=== PATIENT | male | born 1975 ===

== ENCOUNTER 2024-02-22 00:49 | Emergency (ER) | payer OTHER ==
[~2024-02-22] VITALS: Ht 190.5 cm; Wt 205.0 kg
[2024-02-22] MEDS ORDERED: MORPHINE SULFATE 4 MG/ML VIAL IV ONE (01:00)
[2024-02-22] MEDS ORDERED: ALLOPURINOL100 MG PO (01:00)
[2024-02-22] MEDS ORDERED: SODIUM CHLORIDE 0.9% 1,000 ML IV ONE (01:00)
[2024-02-22] MEDS ORDERED: LODOCO0.5 MG PO (01:00)
[2024-02-22] MEDS ORDERED: ondansetron HCL 4 MG/2 ML VIAL IV ONE (01:00)
[2024-02-22] MEDS ORDERED: INDOMETHACIN MISC (01:01)
[2024-02-22 01:25] LABS: BASOPHILS 0.7 % (0-2); EOSINOPHILS 0.7 % (0-6); HEMATOCRIT 44.6 % (35.0-50.0); HEMOGLOBIN 14.7 g/dL (12.0-18.0); LYMPHOCYTES 16.6 % (24-44); MCH 26.5 (27-36); MCHC 32.9 g/dl (30-36); MCV 80.5 fl (81-99); MONOCYTES 5.5 % (0-12); NEUTROPHILS 76.5 % (39-80); PLATELET COUNT 226 K/uL (140-440); RBC 5.54 M/ul (4.3-5.7)
[2024-02-22 01:43] LABS: ALBUMIN 3.9 g/dL (3.4-5.0); ALBUMIN/GLOBULIN RATIO 1.18 (1.1-2.4); ANION GAP 15.1 (7-21); BILIRUBIN, TOTAL 0.4 ng/dL (0.2-1.0); BUN/CREATININE RATIO 22.95 (6.0-28.6); CALCIUM 9.4 mg/dL (8.5-10.1); CREATININE, SERUM 1.22 mg/dL (0.70-1.30); POTASSIUM 4.1 mmol/L (3.5-5.1); PROTEIN, TOTAL 7.2 g/dL (6.4-8.2)
[2024-02-22 02:09] LABS: BILIRUBIN, URINE NEGATIVE (negative); BLOOD/HGB, URINE LARGE (Negative); KETONE, URINE NEGATIVE (Negative); LEUK ESTERASE, URINE NEGATIVE (negative); NITRITE, URINE NEGATIVE (negative); PH, URINE 5.5 (5-7)
[2024-02-22 02:15] LABS: EPITHELIAL CELLS, URINE SQUAMOUS 1+ /lpf (0-1+); RED BLOOD CELLS, URINE >50 /hpf (0-5)
[2024-02-22 02:16] LABS: BACTERIA, URINE RARE /hpf (negative); CASTS, URINE NONE SEEN \\lpf; COLLECTION TYPE, URINE CLEAN CATCH; CRYSTALS, URINE NONE SEEN (0-1+); REFLEX CULTURE, URINE No (No)
[2024-02-22] MEDS ORDERED: FLOMAX0.4 MG PO (03:26)
[2024-02-22] MEDS ORDERED: ONDANSETRON ODT8 MG PO (03:26)
[2024-02-22] MEDS ORDERED: HYDROCODON-ACE1 EA10 PO (03:26)
[2024-02-22] MEDS ORDERED: HYDROCODONE BIT/ACETAMINOPHEN 5/325 MG 1 TAB HOME.PACK PO ONE (03:30)
[2024-02-22] MEDS ORDERED: ONDANSETRON 4 MG HOME.PACK SL ONE (03:30)
[2024-02-22] MEDS ORDERED: TAMSULOSIN HCL 0.4 MG CAP PO ONE (03:30)
[2024-02-22 03:56] VITALS: BP 139/91
== END 2024-02-22 03:57 | disposition home or self-care (01) ==
LOC: ED 00:49
PROVIDERS: Family Medicine
DX: N20.2 Calculus of kidney with calculus of ureter (principal); K57.30 Diverticulosis of large intestine without perforation or abscess without bleeding; M10.9 Gout, unspecified; E66.9 Obesity, unspecified; Z68.43 Body mass index [BMI] 50.0-59.9, adult; Z87.442 Personal history of urinary calculi; Z88.0 Allergy status to penicillin; Z79.899 Other long term (current) drug therapy
CPT/HCPCS: 36415; 74176; 80053; 81001; 83690; 85025; 96361; 96374; 96375; 99284-25; A9270; J2270; J2405; J7030